=== PATIENT | female | born 1985 | race American Indian/Alaskan Native ===

== ENCOUNTER 2019-09-10 20:04 | Emergency (ER) | payer SELFPAY ==
--- NOTE | 2019-09-10 21:59 | Event Note ---
ED Screening Note ED Screening Note: pt states she is currently 7 weeks light vaginal spotting that began tonight mild cramping no v/d no fever /P:3/A:1 PMHx depression, DM no allergies to meds This initial assessment/diagnostic orders/clinical plan/treatment(s) is/are subject to change based on patients health status, clinical progression and re- assessment by fellow clinical providers in the ED. Further treatment and workup at subsequent clinical providers discretion. Patient/guardian urged not to elope from the ED as their condition may be serious if not clinically assessed and managed. Initial orders include: labs, UA, US
[2019-09-10 22:00] VITALS: BP 152/99
[2019-09-10 22:40] LABS: Bacteria,Urine 1+ /HPF (Negative); Bilirubin,Urine NEG (Negative); Blood,Urine MOD (Negative); Color,Urine Yellow (Yellow); Protein,Urine <15 mg/dL mg/dL (Negative); Urobilinogen,Urine < 2.0 mg/dL (<2.0)
[2019-09-10 22:58] LABS: Hematocrit 37.2 % (30.3-42.9); Hemoglobin 12.9 gm/dl (10.1-14.3); Mean Corpuscular HGB Conc 35 % (30-34); Mean Corpuscular Volume 80 fl (79-97); Platelet Count 391 K/mm3 (140-440); Red Blood Count 4.63 M/mm3 (3.65-5.03); Red Cell Distribution Width 14.4 % (13.2-15.2)
--- NOTE | 2019-09-10 23:16 | Ultrasound Report ---
ULTRASOUND OBSTETRIC INDICATION: 7 weeks , vaginal spotting. TECHNIQUE: Transabdominal. COMPARISON: None available. FINDINGS: GESTATIONAL SAC: Well-defined oval shape and intrauterine in location. YOLK SAC: No significant abnormality. EMBRYO/FETUS: No significant abnormality. - [place]-Rump Length = 0.83 cm = 6 weeks, 6 day(s). - Heart Rate = 143 beats per minute. ADNEXA: The ovaries are not identified. No abnormality is seen along the adnexal regions. FREE FLUID: None. ADDITIONAL FINDINGS: There is a possible fibroid along the uterine fundus measuring 3.4 x 3.1 x 3.8 c m. IMPRESSION: 1. Single, living intrauterine with estimated sonographic age of 6 weeks, 6 day(s). 2. Possible uterine fibroid as above. Signer Name: Mahesh Wolff MD Signed: 09/10/2019 11:12 PM Workstation Name: [id number]
--- NOTE | 2019-09-11 00:12 | Emergency Department Report ---
ED Female HPI - General Chief complaint: Vaginal Bleeding Stated complaint: 7 WEEKS PREG BLEEDING Time Seen by Provider: 09/10/19 21:57 Source: patient Mode of arrival: Ambulatory Limitations: No Limitations - History of Present Illness Initial comments: 34-year-old [place] female 5. 3 visits to the emergency room stating she is 7 weeks with last menstrual periods in 719. Patient states she had pain discharged when she wiped several times today. Patient reports mild cramping but none right now. Onset/Timin -: days(s) Severity scale (0 -10): 0 Quality: cramping Consistency: intermittent Worsens with: none - Related Data Allergies Allergy/AdvReac Type Severity Reaction Status Date / Time No Known Allergies Allergy Unverified 09/10/19 20:56 ED Review of Systems ROS: Stated complaint: 7 WEEKS PREG BLEEDING Other details as noted in HPI Comment: All other systems reviewed and negative ED Past Medical Hx - Past Medical History Previous Medical History?: Yes Hx Hypertension: Yes Hx Diabetes: Yes - Surgical History Past Surgical History?: Yes Additional Surgical History: Reports a tubal ligation that failed - Social History Smoking Status: Never Smoker ED Physical Exam - General Limitations: No Limitations General appearance: alert, in no apparent distress - Head Head exam: Present: atraumatic, normocephalic - Eye Eye exam: Present: normal appearance - ENT ENT exam: Present: mucous membranes moist - Neck Neck exam: Present: normal inspection - Neurological Exam Neurological exam: Present: alert, oriented X3, normal gait - Psychiatric Psychiatric exam: Present: normal affect, normal mood - Skin Skin exam: Present: warm, dry, intact, normal color. Absent: rash ED Course Vital Signs 09/10/19 21:10 Temperature 98.5 F Pulse Rate 77 Respiratory 18 Rate Blood Pressure 152/99 [Right] O2 Sat by Pulse 100 Oximetry ED Medical Decision Making - Lab Data Result diagrams: 09/10/19 22:39 - Radiology Data Radiology results: report reviewed Patient: LAURA CARROLL MR#: [id number] : 1985 Acct:[id number] Age/Sex: 34 / F ADM Date: 09/10/19 Loc: ED Attending Dr: Ordering Physician: JONY DAN Date of Service: 09/10/19 Procedure(s): US OB <= 14 weeks fetus Accession Number(s): [id number] cc: JONY DAN ULTRASOUND OBSTETRIC INDICATION: 7 weeks , vaginal spotting. TECHNIQUE: Transabdominal. COMPARISON: None available. FINDINGS: GESTATIONAL SAC: Well-defined oval shape and intrauterine in location. YOLK SAC: No significant abnormality. EMBRYO/FETUS: No significant abnormality. - [place]-Rump Length = 0.83 cm = 6 weeks, 6 day(s). - Heart Rate = 143 beats per minute. ADNEXA: The ovaries are not identified. No abnormality is seen along the adnexal regions. FREE FLUID: None. ADDITIONAL FINDINGS: There is a possible fibroid along the uterine fundus measuring 3.4 x 3.1 x 3.8 cm. IMPRESSION: 1. Single, living intrauterine with estimated sonographic age of 6 weeks, 6 day(s). 2. Possible uterine fibroid as above. Signer Name: Mahesh Wolff MD Signed: 09/10/2019 11:12 PM Workstation Name: [id number] Transcribed By: LINDSEY Dictated By: Mahesh Wolff MD Electronically Authenticated By: Mahesh Wolff MD Signed Date/Time: 09/10/192311 DD/ 09 TD/TT: - Medical Decision Making 34-year-old [place] female 5. 3 visits to the emergency room stating s he is 7 weeks with last menstrual periods in 719. Patient states she had pain discharged when she wiped several times today. Patient reports mild cramping but none right now. Critical care attestation.: If time is entered above; I have spent that time in minutes in the direct care of this critically ill patient, excluding procedure time. ED Disposition Clinical Impression: Vaginal spotting Disposition: DC-01 TO HOME OR SELFCARE Is pt being admited?: No Does the pt Need Aspirin: No Condition: Stable Additional Instructions: Ultrasound shows intrauterine gestation. Follow-up which [facility] Referrals: PRIMARY CARE, [Primary Care Provider] - 3-5 Days [facility] [Provider Group] - 3-5 Days
[2019-09-11 00:35] LABS: Band Neutrophils # (Manual) 0.2 K/mm3; Basophils % (Manual) 0 % (0.0-1.8); Total Cells Counted 100
[2019-09-11 00:36] LABS: Platelet Estimate Consistent w Auto; RBC Morphology Normal; Toxic Granulation Rare
== END 2019-09-11 00:15 | disposition home or self-care (01) ==
LOC: ED 20:04
DX: O26.851 Spotting complicating pregnancy, first trimester (principal); O24.911 Unspecified diabetes mellitus in pregnancy, first trimester; O16.1 Unspecified maternal hypertension, first trimester; Z3A.01 Less than 8 weeks gestation of pregnancy
CPT/HCPCS: 36415; 76801; 81001; 84702; 85007; 85025; 86900; 86901